=== PATIENT | female | born 1950 | race Caucasian/White ===

== ENCOUNTER 2019-10-11 13:27 | Inpatient (IN) ==
[2019-10-11] MEDS ORDERED: LIDOCAINE/EPINEPHR/TETRACAINE 3 ML SYRINGE TOP ONE (13:54)
[2019-10-11] MEDS ORDERED: DIPH/TET/ACEL PERT BOOSTER VACCINE 0.5 ML VIAL IM ONE (13:54)
[2019-10-11] MEDS ORDERED: CLINDAMYCIN 600 MG/4 ML VIAL IM STA (13:56)
[2019-10-11] MEDS ORDERED: LIDOCAINE/EPINEPHR/TETRACAINE 3 ML SYRINGE TOP STA (14:01)
[2019-10-11] MEDS ORDERED: HYDROmorphone 2 MG/1 ML VIAL IV STA (14:54)
[2019-10-11] MEDS ORDERED: ONDANSETRON 4 MG/2 ML VIAL IV STA (14:54)
[2019-10-11] MEDS ORDERED: ACETAMINOPHEN 325 MG TABLET PO PRN (15:01)
[2019-10-11] MEDS ORDERED: MORPHINE 4 MG/1 ML VIAL IV PRN (15:01)
[2019-10-11 15:54] LABS: Basophils # 0.1 10*3/uL (0.0-0.2); Basophils % 0.5 % (0.0-0.8); Eosinophils # 0.3 10*3/uL (0.0-0.87); Eosinophils % 2.7 % (0.00-10.9); Hematocrit 42.7 VOL% (35.7-47.0); Hemoglobin 13.9 GM/DL (12.0-16.0); Immature Granulocytes % 0.3 %; Immature Granulocytes Absolute 0.04 #; Lymphocytes % 16.9 % (21.3-54.2); Mean Corpuscular HGB Conc 32.6 GM/DL (32-36); Mean Corpuscular Volume 82.8 FL (87-102); Mean Platelet Volume 10.3 FL (9.6-12.0); Monocytes % 6.4 % (1.7-12.7); Neutrophils % 73.2 % (38.7-73.9); Platelet Count 290 T/CUMM (130-400); Red Blood Count 5.16 MC/CUMM (3.8-5.5); Red Cell Distribution Width 15.4 % (9.3-17.3); White Blood Count 11.6 T/CUMM (4-12)
[2019-10-11 16:02] LABS: INR 1.3; PT Patient Result 14.4 SECS (9.6-12.2)
[2019-10-11 16:16] LABS: Alanine Aminotransferase 33 U/L (13-56); Albumin 3.8 G/DL (3.4-5.0); Alkaline Phosphatase 98 U/L (45-117); Aspartate Amino Transferase 26 U/L (0-37); Blood Urea Nitrogen 21 MG/DL (7-18); Calcium 9.2 MG/DL (8.5-10.1); Estimated Glom Filtration Rate 76 ML/MIN; Glucose 104 MG/DL (74-106); Osmolality,Calculated 281.4 MOS/KG (273-304); Total Protein 7.1 G/DL (6.4-8.3); Troponin I < 0.015 NG/ML (0.00-0.045)
[2019-10-11 16:44] LABS: Apearance,Urine CLEAR (Clear); Bacteria,Urine Occasional /HPF (Few); Bilirubin,Urine Negative (Negative); Blood, Urine Negative (Negative); Glucose,Urine (UA) Negative (Negative); Hyaline Casts,Urine 4 /LPF (0-3); Ketones,Urine Negative (Negative); Mucus,Urine Occasional /LPF (Occasional); Nitrite,Urine Negative (Negative); Protein,Urine Negative; RBC,Urine 1 /HPF (0-4); Urine Color Yellow (Yellow); Urine Specific Gravity 1.011 (1.001-1.035); Urine Urobilinogen < 2.0 EU/DL (0.2-1.0); WBC,Urine 1 /HPF (0-6)
[2019-10-11] MEDS: PANTOPRAZOLE 40 MG TABLET PO SCH (18:44)
[2019-10-11] MEDS: POTASSIUM CHLORIDE 20 MEQ TABLET PO SCH ×2 (18:44→21:30)
[2019-10-11] MEDS: DEXTROSE 5% NACL 0.45% 1,000 ML IV SCH ×2 (18:47→23:30)
[2019-10-12] MEDS: DEXTROSE 5% NACL 0.45% 1,000 ML IV SCH ×3 (02:15→18:18)
[2019-10-12 06:23] LABS: Basophils # 0.1 10*3/uL (0.0-0.2); Basophils % 0.5 % (0.0-0.8); Eosinophils # 0.3 10*3/uL (0.0-0.87); Eosinophils % 3.6 % (0.00-10.9); Hematocrit 36.6 VOL% (35.7-47.0); Hemoglobin 11.9 GM/DL (12.0-16.0); Immature Granulocytes % 0.4 %; Immature Granulocytes Absolute 0.04 #; Lymphocytes # 1.9 10*3/uL (1.4-4.0); Lymphocytes % 20.7 % (21.3-54.2); Mean Corpuscular HGB Conc 32.5 GM/DL (32-36); Mean Corpuscular Volume 83.4 FL (87-102); Mean Platelet Volume 10.1 FL (9.6-12.0); Monocytes % 7.9 % (1.7-12.7); Neutrophils % 66.9 % (38.7-73.9); Platelet Count 242 T/CUMM (130-400); Red Blood Count 4.39 MC/CUMM (3.8-5.5); Red Cell Distribution Width 15.6 % (9.3-17.3); White Blood Count 9.1 T/CUMM (4-12)
[2019-10-12 06:46] LABS: Calcium 8.1 MG/DL (8.5-10.1); Risk Ratio 2.2; VLDL CHOLESTEROL 15.6 MG/DL
[2019-10-12] MEDS ORDERED: POTASSIUM CHLORIDE 20 MEQ TABLET PO SCH (08:30)
[2019-10-12] MEDS: PANTOPRAZOLE 40 MG TABLET PO SCH ×3 (09:17→20:26)
[2019-10-12] MEDS ORDERED: MELATONIN 3 MG TABLET PO PRN (10:22)
[2019-10-12] MEDS: MULTIVITAMIN (CENTRUM) TABLET PO SCH (11:38)
[2019-10-12] MEDS: POTASSIUM CHLORIDE 20 MEQ TABLET PO SCH ×2 (11:38→20:26)
[2019-10-12] MEDS: VITAMIN E 400 UNIT CAPSULE PO SCH (11:39)
[2019-10-12] MEDS: METOPROLOL TARTRATE 25 MG TABLET PO SCH ×2 (11:39→18:20)
[2019-10-12] MEDS: guaiFENesin/DM ER 600-30 MG TABLET PO SCH ×2 (11:39→20:26)
[2019-10-12] MEDS: CETIRIZINE 10 MG TABLET PO SCH (11:39)
[2019-10-12] MEDS: FLUTICASONE 50 MCG NASAL SPRAY 16 GM BOTTLE BOTH NARES SCH (11:41)
[2019-10-12] MEDS: DOCUSATE SODIUM 100 MG CAPSULE PO SCH (11:42)
[2019-10-12] MEDS: POTASSIUM CHLORIDE RIDER 10 MEQ in PREMIX 1 EACH IV SCH ×4 (11:44→16:05)
[2019-10-12] MEDS: BECLOMETHASONE 80 MCG/PUFF INHALER 8.7 GM INH SCH ×2 (12:00→20:27)
[2019-10-12] MEDS: BUDESONIDE/FORMOTEROL 160-4.5 INHALER 6 GM INH SCH ×2 (12:01→20:27)
[2019-10-12] MEDS: MONTELUKAST 10 MG TABLET PO SCH (20:26)
[2019-10-12] MEDS: SIMVASTATIN 10 MG TABLET PO SCH (20:26)
[2019-10-12] MEDS: GABAPENTIN 100 MG CAPSULE PO PRN (21:38)
[2019-10-12] MEDS: ALBUTEROL 2.5 MG/3 ML NEB RESP TX SCH (23:02)
[2019-10-13] MEDS: DEXTROSE 5% NACL 0.45% 1,000 ML IV SCH ×2 (02:12→22:58)
[2019-10-13] MEDS: GABAPENTIN 100 MG CAPSULE PO PRN ×3 (06:10→21:32)
[2019-10-13] MEDS: ALBUTEROL 2.5 MG/3 ML NEB RESP TX SCH ×3 (07:39→20:00)
[2019-10-13] MEDS: VITAMIN E 400 UNIT CAPSULE PO SCH (09:59)
[2019-10-13] MEDS: METOPROLOL TARTRATE 25 MG TABLET PO SCH ×2 (09:59→19:59)
[2019-10-13] MEDS: MULTIVITAMIN (CENTRUM) TABLET PO SCH (09:59)
[2019-10-13] MEDS: DOCUSATE SODIUM 100 MG CAPSULE PO SCH (09:59)
[2019-10-13] MEDS: PANTOPRAZOLE 40 MG TABLET PO SCH ×2 (09:59→20:00)
[2019-10-13] MEDS: CETIRIZINE 10 MG TABLET PO SCH (09:59)
[2019-10-13] MEDS: guaiFENesin/DM ER 600-30 MG TABLET PO SCH ×2 (09:59→20:00)
[2019-10-13] MEDS: POTASSIUM CHLORIDE 20 MEQ TABLET PO SCH ×2 (09:59→20:00)
[2019-10-13] MEDS: BECLOMETHASONE 80 MCG/PUFF INHALER 8.7 GM INH SCH ×2 (10:00→20:01)
[2019-10-13] MEDS: BUDESONIDE/FORMOTEROL 160-4.5 INHALER 6 GM INH SCH ×2 (10:00→20:01)
[2019-10-13] MEDS: FLUTICASONE 50 MCG NASAL SPRAY 16 GM BOTTLE BOTH NARES SCH (10:03)
[2019-10-13] MEDS: LIDOCAINE 5% PATCH TRANSDERM SCH (12:47)
[2019-10-13] MEDS: SIMVASTATIN 10 MG TABLET PO SCH (20:00)
[2019-10-13] MEDS: MONTELUKAST 10 MG TABLET PO SCH (20:00)
[2019-10-14] MEDS: BECLOMETHASONE 80 MCG/PUFF INHALER 8.7 GM INH SCH (09:25)
[2019-10-14] MEDS: BUDESONIDE/FORMOTEROL 160-4.5 INHALER 6 GM INH SCH (09:25)
[2019-10-14] MEDS: POTASSIUM CHLORIDE 20 MEQ TABLET PO SCH (09:26)
[2019-10-14] MEDS: MULTIVITAMIN (CENTRUM) TABLET PO SCH (09:26)
[2019-10-14] MEDS: METOPROLOL TARTRATE 25 MG TABLET PO SCH (09:26)
[2019-10-14] MEDS: GABAPENTIN 100 MG CAPSULE PO PRN (09:26)
[2019-10-14] MEDS: CETIRIZINE 10 MG TABLET PO SCH (09:26)
[2019-10-14] MEDS: PANTOPRAZOLE 40 MG TABLET PO SCH (09:26)
[2019-10-14] MEDS: VITAMIN E 400 UNIT CAPSULE PO SCH (09:26)
[2019-10-14] MEDS: DOCUSATE SODIUM 100 MG CAPSULE PO SCH (09:26)
[2019-10-14] MEDS: guaiFENesin/DM ER 600-30 MG TABLET PO SCH (09:26)
[2019-10-14] MEDS: LIDOCAINE 5% PATCH TRANSDERM SCH (09:27)
[2019-10-14] MEDS: FLUTICASONE 50 MCG NASAL SPRAY 16 GM BOTTLE BOTH NARES SCH (09:32)
[2019-10-14 11:45] VITALS: BP 149/79
== END 2019-10-14 14:30 | DRG 563 ==
LOC: N.ED 13:27 → N.EDINP 15:01 → N.3E 16:54
PROVIDERS: ADMIT Family Medicine; ATTEND Family Medicine

== ENCOUNTER 2022-07-26 14:39 | Inpatient (IN) ==
[2022-07-26] MEDS ORDERED: SODIUM CHLORIDE 0.9% 1,000 ML IV STA (15:06)
[2022-07-26] MEDS ORDERED: DILTIAZEM 25 MG/5 ML VIAL IV STA (15:07)
[2022-07-26] MEDS ORDERED: DILTIAZEM INJ 100 MG in SODIUM CHLORIDE 0.9% 100 ML IV SCH (15:30)
[2022-07-26 15:43] LABS: Basophils % 0.1 % (0.0-0.8); Hematocrit 46.8 VOL% (35.7-47.0); Hemoglobin 14.9 GM/DL (12.0-16.0); Immature Granulocytes % 1.3 %; Immature Granulocytes Absolute 0.13 #; Lymphocytes # 2.6 10*3/uL (1.4-4.0); Lymphocytes % 25.8 % (21.3-54.2); Mean Corpuscular HGB Conc 31.8 GM/DL (32-36); Mean Corpuscular Volume 88.5 FL (87-102); Mean Platelet Volume 9.3 FL (9.6-12.0); Monocytes # 0.8 10*3/uL (0.11-0.8); Monocytes % 7.4 % (1.7-12.7); Neutrophils % 65.4 % (38.7-73.9); Platelet Count 308 T/CUMM (130-400); Red Blood Count 5.29 MC/CUMM (3.8-5.5); Red Cell Distribution Width 14.7 % (9.3-17.3); White Blood Count 10.1 T/CUMM (4-12)
[2022-07-26 16:04] LABS: Albumin 3.4 G/DL (3.4-5.0); Bilirubin,Total 0.5 MG/DL (0.20-1.00); Calcium 8.9 MG/DL (8.5-10.1); Osmolality,Calculated 279.7 MOS/KG (273-304); Potassium 4.7 MMOL/L (3.5-5.1); Total Protein 6.3 G/DL (6.4-8.2)
[2022-07-26 16:25] LABS: INR 2.4; PT Patient Result 24.8 SECS (10.1-12.1); Partial Thromboplastin Time 38.2 SECS (23.7-32.9)
[2022-07-26 16:29] LABS: Thyroid Stimulating Hormone 0.691 uIU/ml (0.358-3.74)
[2022-07-26] MEDS ORDERED: ONDANSETRON 4 MG/2 ML VIAL IV PRN ×2 (17:40→22:19)
[2022-07-26] MEDS ORDERED: ALBUTEROL/IPRATROPIUM 3 ML NEB RESP TX SCH (19:00)
[2022-07-26] MEDS ORDERED: ACETAMINOPHEN 325 MG TABLET PO PRN (22:19)
[2022-07-26] MEDS ORDERED: ALBUTEROL/IPRATROPIUM 3 ML NEB RESP TX ONE (23:05)
[2022-07-26] MEDS: DOCUSATE SODIUM 100 MG CAPSULE PO SCH (23:51)
[2022-07-26] MEDS: SODIUM CHLORIDE 0.9% 1,000 ML IV SCH (23:51)
[2022-07-27] MEDS ORDERED: [UNRECOGNIZED DRUG - OTHER] PO PRN (00:08)
[2022-07-27] MEDS ORDERED: BREZTRI INH SCH (00:15)
[2022-07-27] MEDS ORDERED: guaiFENesin/DM ER 600-30 MG TABLET PO PRN (00:30)
[2022-07-27] MEDS ORDERED: ALBUTEROL 2.5 MG/3 ML NEB RESP TX PRN (00:52)
[2022-07-27] MEDS ORDERED: diphenhydrAMINE CAP 50 MG CAPSULE PO PRN (01:00)
[2022-07-27] MEDS: GABAPENTIN 600 MG TABLET PO SCH ×3 (01:39→21:00)
[2022-07-27] MEDS: CALCIUM (CARBONATE)/VITAMIN D 600 MG-400 UNIT TABLET PO SCH ×3 (01:39→21:03)
[2022-07-27] MEDS: POTASSIUM CHLORIDE 20 MEQ TABLET PO SCH ×3 (01:39→21:00)
[2022-07-27] MEDS: WARFARIN 5 MG TABLET PO SCH ×2 (01:39→17:32)
[2022-07-27] MEDS: PANTOPRAZOLE 40 MG TABLET PO SCH ×3 (01:40→21:00)
[2022-07-27] MEDS: ASCORBIC ACID 500 MG TABLET PO SCH ×3 (01:40→20:59)
[2022-07-27] MEDS: SIMVASTATIN 10 MG TABLET PO SCH ×2 (01:40→21:00)
[2022-07-27] MEDS: MONTELUKAST 10 MG TABLET PO SCH ×2 (01:40→20:59)
[2022-07-27 06:03] LABS: Basophils % 0.1 % (0.0-0.8); Hematocrit 41.4 VOL% (35.7-47.0); Hemoglobin 13.1 GM/DL (12.0-16.0); Immature Granulocytes % 1.2 %; Lymphocytes # 2.7 10*3/uL (1.4-4.0); Lymphocytes % 31.8 % (21.3-54.2); Mean Corpuscular HGB Conc 31.6 GM/DL (32-36); Mean Platelet Volume 9.3 FL (9.6-12.0); Monocytes # 0.8 10*3/uL (0.11-0.8); Monocytes % 9.4 % (1.7-12.7); Neutrophils % 57.5 % (38.7-73.9); Platelet Count 243 T/CUMM (130-400); Red Cell Distribution Width 14.8 % (9.3-17.3); White Blood Count 8.5 T/CUMM (4-12)
[2022-07-27 06:19] LABS: Albumin 2.8 G/DL (3.4-5.0); Bilirubin,Total 0.4 MG/DL (0.20-1.00); Calcium 8.4 MG/DL (8.5-10.1); Osmolality,Calculated 282.3 MOS/KG (273-304); Potassium 4.4 MMOL/L (3.5-5.1); Risk Ratio 2.72; Total Protein 5.4 G/DL (6.4-8.2); VLDL Cholesterol 20.2 MG/DL
[2022-07-27] MEDS: FLUTICASONE 50 MCG NASAL SPRAY 16 GM BOTTLE BOTH NARES SCH (08:50)
[2022-07-27] MEDS: LOSARTAN 25 MG TABLET PO SCH (08:51)
[2022-07-27] MEDS: SPIRONOLACTONE 25 MG TABLET PO SCH (08:51)
[2022-07-27] MEDS: METOPROLOL SUCCINATE XL 25 MG TABLET PO SCH (08:51)
[2022-07-27] MEDS: CHOLECALCIFEROL 5,000 UNIT TABLET PO SCH (08:51)
[2022-07-27] MEDS: MAGNESIUM OXIDE 400 MG TABLET PO SCH (08:51)
[2022-07-27] MEDS: VITAMIN E 400 UNIT CAPSULE PO SCH (08:51)
[2022-07-27] MEDS: FUROSEMIDE 40 MG TABLET PO SCH (08:52)
[2022-07-27] MEDS ORDERED: CETIRIZINE 10 MG TABLET PO SCH (09:00)
[2022-07-27] MEDS ORDERED: MECLIZINE 25 MG TABLET PO PRN (09:00)
[2022-07-27] MEDS ORDERED: PANTOPRAZOLE 40 MG TABLET PO SCH ×2 (09:00)
[2022-07-27] MEDS: BREZTRI INH SCH ×2 (09:33→21:08)
[2022-07-27] MEDS: DOCUSATE SODIUM 100 MG CAPSULE PO SCH ×2 (09:34→20:59)
[2022-07-27] MEDS ORDERED: DILTIAZEM 30 MG TABLET PO SCH ×2 (13:19→21:00)
[2022-07-27] MEDS: SODIUM CHLORIDE 0.9% 1,000 ML IV SCH (13:22)
[2022-07-27] MEDS: cefTRIAXone 1,000 MG in SODIUM CHLORIDE 0.9% 100 ML IV SCH (15:59)
[2022-07-27] MEDS: CETIRIZINE 10 MG TABLET PO SCH (21:00)
[2022-07-28 06:07] LABS: Hematocrit 44.2 VOL% (35.7-47.0); Hemoglobin 13.9 GM/DL (12.0-16.0); Immature Granulocytes % 0.8 %; Immature Granulocytes Absolute 0.07 #; Lymphocytes % 33.8 % (21.3-54.2); Mean Corpuscular HGB Conc 31.4 GM/DL (32-36); Mean Corpuscular Volume 89.3 FL (87-102); Mean Platelet Volume 9.6 FL (9.6-12.0); Neutrophils % 54.4 % (38.7-73.9); Platelet Count 276 T/CUMM (130-400); Red Blood Count 4.95 MC/CUMM (3.8-5.5); Red Cell Distribution Width 14.8 % (9.3-17.3); White Blood Count 8.8 T/CUMM (4-12)
[2022-07-28 06:16] LABS: INR 2.1
[2022-07-28 06:39] LABS: Calcium 8.7 MG/DL (8.5-10.1); Osmolality,Calculated 286.1 MOS/KG (273-304); Potassium 4.3 MMOL/L (3.5-5.1)
[2022-07-28 06:43] LABS: Alanine Aminotransferase 20 U/L (13-56); Albumin 2.9 G/DL (3.4-5.0); Alkaline Phosphatase 92 U/L (45-117); Aspartate Amino Transferase 13 U/L (0-37); Bilirubin,Total < 0.39 MG/DL (0.20-1.00); Blood Urea Nitrogen 17 MG/DL (7-18); Calcium 8.7 MG/DL (8.5-10.1); Carbon Dioxide 26 MMOL/L (21-32); Chloride 109 MMOL/L (98-107); Glucose 130 MG/DL (74-106); Potassium 4.4 MMOL/L (3.5-5.1); Sodium 143 MMOL/L (136-145); Total Protein 5.5 G/DL (6.4-8.2)
[2022-07-28] MEDS ORDERED: AMIODARONE INJ 150 MG in DEXTROSE 5% 100 ML IV ONE (07:18)
[2022-07-28] MEDS ORDERED: AMIODARONE INJ 450 MG in DEXTROSE 5% 241 ML IV SCH ×2 (07:30→13:30)
[2022-07-28] MEDS: POTASSIUM CHLORIDE 20 MEQ TABLET PO SCH ×2 (08:36→20:50)
[2022-07-28] MEDS: VITAMIN E 400 UNIT CAPSULE PO SCH (08:37)
[2022-07-28] MEDS: METOPROLOL SUCCINATE XL 25 MG TABLET PO SCH (08:37)
[2022-07-28] MEDS: FUROSEMIDE 40 MG TABLET PO SCH (08:38)
[2022-07-28] MEDS: DOCUSATE SODIUM 100 MG CAPSULE PO SCH ×2 (08:38→20:49)
[2022-07-28] MEDS: LOSARTAN 25 MG TABLET PO SCH (08:38)
[2022-07-28] MEDS: SPIRONOLACTONE 25 MG TABLET PO SCH (08:39)
[2022-07-28] MEDS: MAGNESIUM OXIDE 400 MG TABLET PO SCH (08:40)
[2022-07-28] MEDS: PANTOPRAZOLE 40 MG TABLET PO SCH ×2 (08:40→20:50)
[2022-07-28] MEDS: GABAPENTIN 600 MG TABLET PO SCH ×2 (08:41→20:50)
[2022-07-28] MEDS: ASCORBIC ACID 500 MG TABLET PO SCH ×2 (08:41→20:50)
[2022-07-28] MEDS: BREZTRI INH SCH ×2 (08:42→20:51)
[2022-07-28] MEDS: CALCIUM (CARBONATE)/VITAMIN D 600 MG-400 UNIT TABLET PO SCH ×2 (08:42→20:49)
[2022-07-28] MEDS: CHOLECALCIFEROL 5,000 UNIT TABLET PO SCH (08:43)
[2022-07-28] MEDS: FLUTICASONE 50 MCG NASAL SPRAY 16 GM BOTTLE BOTH NARES SCH (08:47)
[2022-07-28] MEDS ORDERED: DILTIAZEM 25 MG/5 ML VIAL IV ONE (09:00)
[2022-07-28] MEDS ORDERED: DILTIAZEM CD 120 MG CAPSULE PO SCH (09:00)
[2022-07-28] MEDS: methylPREDNISolone SOD SUC 40 MG/1 ML VIAL IV SCH ×2 (10:37→23:33)
[2022-07-28] MEDS: FLUTICASONE/SALMETEROL 250-50 DISKUS 14 DOSE INH SCH ×2 (14:00→20:50)
[2022-07-28] MEDS: DILTIAZEM INJ 100 MG in SODIUM CHLORIDE 0.9% 100 ML IV SCH ×2 (14:05→22:57)
[2022-07-28] MEDS: cefTRIAXone 1,000 MG in SODIUM CHLORIDE 0.9% 100 ML IV SCH (16:30)
[2022-07-28] MEDS: WARFARIN 5 MG TABLET PO SCH (18:21)
[2022-07-28] MEDS: SIMVASTATIN 10 MG TABLET PO SCH (20:49)
[2022-07-28] MEDS: MONTELUKAST 10 MG TABLET PO SCH (20:49)
[2022-07-28] MEDS: CETIRIZINE 10 MG TABLET PO SCH (20:50)
[2022-07-29 07:11] LABS: Basophils % 0.1 % (0.0-0.8); Hemoglobin 13.8 GM/DL (12.0-16.0); Immature Granulocytes % 0.6 %; Lymphocytes # 1.5 10*3/uL (1.4-4.0); Lymphocytes % 9.7 % (21.3-54.2); Mean Corpuscular HGB Conc 32.1 GM/DL (32-36); Mean Corpuscular Volume 87.8 FL (87-102); Mean Platelet Volume 9.5 FL (9.6-12.0); Monocytes # 0.3 10*3/uL (0.11-0.8); Neutrophils % 87.6 % (38.7-73.9); Platelet Count 271 T/CUMM (130-400); Red Cell Distribution Width 14.5 % (9.3-17.3); White Blood Count 15.6 T/CUMM (4-12)
[2022-07-29 07:19] LABS: INR 2.3; PT Patient Result 23.7 SECS (10.1-12.1)
[2022-07-29 07:27] LABS: Calcium 8.9 MG/DL (8.5-10.1); Osmolality,Calculated 284.4 MOS/KG (273-304); Potassium 4.2 MMOL/L (3.5-5.1)
[2022-07-29 07:30] LABS: Alanine Aminotransferase 20 U/L (13-56); Alkaline Phosphatase 72 U/L (45-117); Aspartate Amino Transferase 10 U/L (0-37); Bilirubin,Total < 0.39 MG/DL (0.20-1.00); Blood Urea Nitrogen 19 MG/DL (7-18); Calcium 8.8 MG/DL (8.5-10.1); Carbon Dioxide 26 MMOL/L (21-32); Chloride 106 MMOL/L (98-107); Glucose 173 MG/DL (74-106); Osmolality,Calculated 286.3 MOS/KG (273-304); Potassium 4.2 MMOL/L (3.5-5.1); Sodium 141 MMOL/L (136-145); Total Protein 6.2 G/DL (6.4-8.2)
[2022-07-29] MEDS ORDERED: GLUCAGON 1 MG VIAL IM PRN (08:29)
[2022-07-29] MEDS ORDERED: DEXTROSE 10% 250 ML BAG IV PRN ×2 (08:29→08:58)
[2022-07-29] MEDS: DOCUSATE SODIUM 100 MG CAPSULE PO SCH (09:47)
[2022-07-29] MEDS: FLUTICASONE 50 MCG NASAL SPRAY 16 GM BOTTLE BOTH NARES SCH (09:47)
[2022-07-29] MEDS: FLUTICASONE/SALMETEROL 250-50 DISKUS 14 DOSE INH SCH (09:47)
[2022-07-29] MEDS: GABAPENTIN 600 MG TABLET PO SCH (09:48)
[2022-07-29] MEDS: POTASSIUM CHLORIDE 20 MEQ TABLET PO SCH (09:48)
[2022-07-29] MEDS: MAGNESIUM OXIDE 400 MG TABLET PO SCH (09:48)
[2022-07-29] MEDS: VITAMIN E 400 UNIT CAPSULE PO SCH (09:48)
[2022-07-29] MEDS: ASCORBIC ACID 500 MG TABLET PO SCH (09:48)
[2022-07-29] MEDS: CALCIUM (CARBONATE)/VITAMIN D 600 MG-400 UNIT TABLET PO SCH (09:48)
[2022-07-29] MEDS: PANTOPRAZOLE 40 MG TABLET PO SCH (09:48)
[2022-07-29] MEDS: FUROSEMIDE 40 MG TABLET PO SCH (09:49)
[2022-07-29] MEDS: LOSARTAN 25 MG TABLET PO SCH (09:49)
[2022-07-29] MEDS: METOPROLOL SUCCINATE XL 25 MG TABLET PO SCH (09:49)
[2022-07-29] MEDS: SPIRONOLACTONE 25 MG TABLET PO SCH (09:49)
[2022-07-29] MEDS: CHOLECALCIFEROL 5,000 UNIT TABLET PO SCH (09:49)
[2022-07-29] MEDS: BREZTRI INH SCH (09:50)
[2022-07-29] MEDS: methylPREDNISolone SOD SUC 40 MG/1 ML VIAL IV SCH (11:50)
[2022-07-29] MEDS: INSULIN REGULAR 100 UNIT/ML SUBCUT SCH ×2 (12:14→16:37)
[2022-07-29 13:11] VITALS: BP 132/84
[2022-07-29] MEDS: DILTIAZEM INJ 100 MG in SODIUM CHLORIDE 0.9% 100 ML IV SCH (14:36)
[2022-07-29] MEDS: cefTRIAXone 1,000 MG in SODIUM CHLORIDE 0.9% 100 ML IV SCH (16:14)
[2022-07-30] MEDS ORDERED: METOPROLOL SUCCINATE XL 50 MG TABLET PO SCH (09:00)
== END 2022-07-29 16:50 | disposition home health service (06) | DRG 309 ==
LOC: N.ED 14:39 → N.TELES 14:39
PROVIDERS: ADMIT Family Medicine; ATTEND Family Medicine